=== PATIENT | female | born 1990 | race African-American/Black ===

== ENCOUNTER 2021-07-19 20:11 | Inpatient (IN) | payer MEDICAID, OTHER ==
[~2021-07-19] VITALS: Ht 177.8 cm; Wt 76.5 kg
--- NOTE | 2021-07-19 20:23 | NUR ---
ASSUMED CARE OF PATIENT. PATIENT BIB [facility] FOR SOB. PT HAS A HISTORY OF ASHTMA. PT WAS FOUND AT 70% RA BY EMS. PT WAS GIVEN TWO BREATHING TREATMENTS AND 125 MG OF SOLU-MEDROL IV. PT IS ON 16L NRB MASK AT 100%. PT IS NOT ANSWERING ALL TRIAGE QUESTIONS. DR ODOM IN ROOM. PT HAS HER SON WITH HER. CPS CALLED BY [employer]. MICHAEL WITH CPS AWARE. MOTHER REPORTS SHE HAS SOMEONE TO COME CLINIC BUSINESS MANAGER HER SON. VS STABLE. EDUCATION SUPERVISOR ON SINUS TACH NOTED.
[2021-07-19] MEDS ORDERED: SODIUM CHLORIDE 0.9% 1,000ML IVBOLUS ONE (20:30)
[2021-07-19] MEDS ORDERED: ALBUTEROL/IPRATROPIUM 2.5MG/0.5MG, 3 ML NEB ONE (20:30)
[2021-07-19] MEDS ORDERED: SODIUM CHLORIDE FLUSH 10ML SYR IVF ONE (20:30)
--- NOTE | 2021-07-19 20:32 | NUR ---
spoke with grandmother, she is on her way to get patient's son
--- NOTE | 2021-07-19 20:35 | NUR ---
MICHAEL, FROM CPS AWARE PT IS GOING WITH GRANDMOTHER.
[2021-07-19] MEDS ORDERED: ALBUTEROL/IPRATROPIUM 2.5MG/0.5MG, 3 ML ONE (21:00)
--- NOTE | 2021-07-19 21:05 | NUR ---
LAB IN ROOM
--- NOTE | 2021-07-19 21:23 | NUR ---
BREATHING TREATMENT RUNNING
--- NOTE | 2021-07-19 21:26 | NUR ---
PT'S SON WENT WITH HER MOTHER (HIS GRANDMOTHER) PER PATIENT.
[2021-07-19 21:28] LABS: BASOPHILS % (AUTO) 0 % (0-1); EOSINOPHILS % (AUTO) 7 % (1-7); LYMPHOCYTES % (AUTO) 25 % (22-44); MEAN CORPUSCULAR HGB CONC 32.6 g/dL (32.4-35.8); MEAN PLATELET VOLUME 8.3 fL (7.4-10.4); MONOCYTES % (AUTO) 3 % (2-9); NEUTROPHILS % (AUTO) 65 % (42-75); PLATELET COUNT 262 x10^3/uL (130-400); RED BLOOD COUNT 4.79 x10^6/uL (3.82-5.3); RED CELL DISTRIBUTION WIDTH 14.6 % (9.6-15.2)
--- NOTE | 2021-07-19 21:33 | NUR ---
DR ESPINAL HAS UPDATED PATIENT
[2021-07-19 21:37] LABS: ALBUMIN 2.7 g/dL (3.4-5.0); ANION GAP 4 mmol/L (5-15); CALCIUM 7.7 mg/dL (8.5-10.1); CHLORIDE 112 mmol/L (98-107); CREATININE 1.09 mg/dL (0.55-1.02)
[2021-07-19] MEDS ORDERED: POTASSIUM CHLORIDE 40 MEQ in LACTATED RINGERS 1,000 ML IV ONE (22:00)
[2021-07-19] MEDS ORDERED: OMNIPAQUE 350 MG/ML, 100ML BOTTLE ONE (22:26)
[2021-07-19] MEDS ORDERED: ALBUTEROL SULFATE 2.5 MG/3 ML NPPB ONE (22:30)
[2021-07-19] MEDS ORDERED: ALBUTEROL SULFATE 2.5 MG/3 ML ONE (22:35)
--- NOTE | 2021-07-19 23:19 | NUR ---
PT RESTING IN ROOM. PT ON 6L NC. VS STABLE. CALL LIGHT IN PLACE. WILL CONTINUE TO MONITOR.
[2021-07-19] MEDS ORDERED: ALBUTEROL (23:21)
[2021-07-19] MEDS ORDERED: CEFTRIAXONE 1,000 MG in DEXTROSE 5% 50 ML IVPB ONE (23:30)
[2021-07-19] MEDS ORDERED: AZITHROMYCIN 500 MG in SODIUM CHLORIDE 0.9% 250 ML IV ONE (23:30)
[2021-07-19] MEDS ORDERED: PLEASE ENTER HEIGHT AND WEIGHT MC SCH ×2 (23:45)
[2021-07-20] MEDS ORDERED: ALBUTEROL SULFATE 2.5 MG/3 ML NPPB ONE
[2021-07-20] MEDS ORDERED: BISACODYL 10 MG SUPP PR PRN
[2021-07-20] MEDS ORDERED: POLYETHYLENE GLYCOL 17 GM PACKET PO PRN
[2021-07-20] MEDS: KETOROLAC 30 MG/1 ML IVPush PRN ×2 (02:31→08:43)
[2021-07-20] MEDS: AZITHROMYCIN 500 MG in SODIUM CHLORIDE 0.9% 250 ML IV SCH (02:49)
[2021-07-20] MEDS: SODIUM CHLORIDE FLUSH 10ML SYR IVF SCH ×3 (02:50→22:06)
[2021-07-20] MEDS: methylPREDNISolone SOD SUCC 125 MG/2 ML IVPush ONE ×2 (02:51→03:21)
[2021-07-20] MEDS: HEPARIN 5,000 UNITS/ML, 1ML SQ SCH ×3 (02:52→17:41)
[2021-07-20] MEDS: ACETAMINOPHEN 325 MG TABLET PO PRN ×4 (03:04→18:08)
[2021-07-20 05:52] LABS: BASOPHILS % (AUTO) 0 % (0-1); EOSINOPHILS % (AUTO) 0 % (1-7); LYMPHOCYTES % (AUTO) 10 % (22-44); MEAN CORPUSCULAR HGB CONC 32.6 g/dL (32.4-35.8); MEAN PLATELET VOLUME 8.7 fL (7.4-10.4); MONOCYTES % (AUTO) 1 % (2-9); NEUTROPHILS % (AUTO) 89 % (42-75); PLATELET COUNT 260 x10^3/uL (130-400); RED BLOOD COUNT 4.46 x10^6/uL (3.82-5.3); RED CELL DISTRIBUTION WIDTH 14.7 % (9.6-15.2)
[2021-07-20] MEDS: ALBUTEROL HFA 90 MCG/SPRAY INH SCH ×4 (05:52→22:06)
[2021-07-20 06:02] LABS: ANION GAP 6 mmol/L (5-15); CALCIUM 7.8 mg/dL (8.5-10.1); CHLORIDE 112 mmol/L (98-107); CREATININE 0.82 mg/dL (0.55-1.02)
[2021-07-20] MEDS ORDERED: methylPREDNISolone SOD SUCC 125 MG/2 ML IVPush SCH (08:00)
[2021-07-20 08:19] VITALS: BP 147/97
[2021-07-20] MEDS: methylPREDNISolone SOD SUCC 125 MG/2 ML IVPush SCH ×2 (08:43→14:00)
[2021-07-20] MEDS: SENNA/DOCUSATE TABLET PO SCH (08:44)
[2021-07-20 09:30] LABS: AMPHETAMINE SCREEN, URINE Negative (Negative); BARBITURATE SCREEN, URINE Negative (Negative); BENZODIAZEPINE SCREEN, URINE Negative (Negative); CANNABINOID SCREEN, URINE Negative (Negative); COCAINE SCREEN, URINE Negative (Negative); METHADONE SCREEN, URINE Negative (Negative); OPIATE SCREEN, URINE Negative (Negative)
[2021-07-20 13:24] VITALS: BP 145/93
[2021-07-20] MEDS ORDERED: FUROSEMIDE 20 MG/2 ML IV ONE (17:30)
[2021-07-20] MEDS: CHOLECALCIFEROL 5,000u TAB PO SCH (18:08)
[2021-07-20] MEDS: ZINC SULFATE 220 MG CAPSULE PO SCH (18:08)
[2021-07-20] MEDS: ASCORBIC ACID 250 MG TAB PO SCH (18:08)
[2021-07-20 19:42] VITALS: BP 142/81
[2021-07-21] MEDS ORDERED: CEFTRIAXONE 1,000 MG in DEXTROSE 5% 50 ML IVPB SCH
[2021-07-21 01:09] VITALS: BP 124/83
[2021-07-21] MEDS: CEFTRIAXONE 2,000 MG in DEXTROSE 5% 50 ML IVPB SCH (01:35)
[2021-07-21] MEDS: HEPARIN 5,000 UNITS/ML, 1ML SQ SCH ×3 (03:16→17:40)
[2021-07-21] MEDS: AZITHROMYCIN 500 MG in SODIUM CHLORIDE 0.9% 250 ML IV SCH (03:17)
[2021-07-21] MEDS: ALBUTEROL HFA 90 MCG/SPRAY INH SCH ×4 (04:27→21:03)
[2021-07-21] MEDS: ONDANSETRON ODT 4 MG PO PRN (04:27)
[2021-07-21 05:45] LABS: BASOPHILS % (AUTO) 0 % (0-1); EOSINOPHILS % (AUTO) 0 % (1-7); LYMPHOCYTES % (AUTO) 12 % (22-44); MEAN CORPUSCULAR HGB CONC 32.2 g/dL (32.4-35.8); MEAN PLATELET VOLUME 8.9 fL (7.4-10.4); MONOCYTES % (AUTO) 6 % (2-9); NEUTROPHILS % (AUTO) 82 % (42-75); PLATELET COUNT 258 x10^3/uL (130-400); RED BLOOD COUNT 4.21 x10^6/uL (3.82-5.3); RED CELL DISTRIBUTION WIDTH 15.3 % (9.6-15.2)
[2021-07-21 05:47] LABS: HCT (SEDRATE) 35.1 % (34.6-47.8)
[2021-07-21 05:52] LABS: ALBUMIN 2.7 g/dL (3.4-5.0); CALCIUM 8.1 mg/dL (8.5-10.1); CHLORIDE 109 mmol/L (98-107)
[2021-07-21 05:55] LABS: ALANINE AMINOTRANSFERASE 21 U/L (12-78); ALKALINE PHOSPHATASE 74 U/L (45-117); BILIRUBIN,TOTAL 0.1 mg/dL (0.2-1.0); C-REACTIVE PROTEIN, QUANT 0.39 mg/dL (0.02-0.49); CREATININE 0.84 mg/dL (0.55-1.02)
[2021-07-21 05:56] LABS: ANION GAP 6 mmol/L (5-15)
[2021-07-21 06:00] LABS: D-DIMER 0.7 ug/mlFEU (0.00-0.52)
[2021-07-21 07:43] VITALS: BP 103/68
[2021-07-21] MEDS: ASCORBIC ACID 250 MG TAB PO SCH ×2 (09:27→17:40)
[2021-07-21] MEDS: ZINC SULFATE 220 MG CAPSULE PO SCH (09:27)
[2021-07-21] MEDS: DEXAMETHASONE 4 MG/ML, 1ML IVPush SCH (09:27)
[2021-07-21] MEDS: SENNA/DOCUSATE TABLET PO SCH (09:28)
[2021-07-21] MEDS: SODIUM CHLORIDE FLUSH 10ML SYR IVF SCH ×2 (09:28→21:04)
[2021-07-21] MEDS: CHOLECALCIFEROL 5,000u TAB PO SCH (09:28)
[2021-07-21 12:15] VITALS: BP 137/85
[2021-07-21 19:16] VITALS: BP 132/86
[2021-07-21] MEDS ORDERED: LIDODERM 5% PATCH TD PRN (21:00)
[2021-07-21] MEDS ORDERED: LIDODERM REMOVE PATCH NOTE XX PRN (21:00)
[2021-07-22 01:14] VITALS: BP 132/85
[2021-07-22] MEDS: CEFTRIAXONE 2,000 MG in DEXTROSE 5% 50 ML IVPB SCH (01:23)
[2021-07-22] MEDS: HEPARIN 5,000 UNITS/ML, 1ML SQ SCH ×2 (01:47→09:19)
[2021-07-22] MEDS: ALBUTEROL HFA 90 MCG/SPRAY INH SCH ×3 (05:43→16:00)
[2021-07-22 07:58] VITALS: BP 135/86
[2021-07-22] MEDS ORDERED: AZITHROMYCIN 250 MG TABLET PO SCH (09:00)
[2021-07-22] MEDS: SENNA/DOCUSATE TABLET PO SCH (09:00)
[2021-07-22] MEDS: SODIUM CHLORIDE FLUSH 10ML SYR IVF SCH (09:00)
[2021-07-22] MEDS: DEXAMETHASONE 4 MG/ML, 1ML IVPush SCH (09:18)
[2021-07-22] MEDS: ASCORBIC ACID 250 MG TAB PO SCH ×2 (09:19→17:00)
[2021-07-22] MEDS: CHOLECALCIFEROL 5,000u TAB PO SCH (09:19)
[2021-07-22] MEDS: ZINC SULFATE 220 MG CAPSULE PO SCH (09:20)
[2021-07-22] MEDS: ONDANSETRON ODT 4 MG PO PRN (09:35)
[2021-07-22] MEDS ORDERED: CHOL500045 PO (13:10)
[2021-07-22] MEDS ORDERED: AZIT250T89 PO (13:10)
[2021-07-22] MEDS ORDERED: ALBU18HF INH (13:10)
[2021-07-22] MEDS ORDERED: ASCO250T12 PO (13:10)
[2021-07-22] MEDS ORDERED: ZINC220C8 PO (13:10)
[2021-07-22] MEDS ORDERED: PRED20TA PO (13:11)
[2021-07-22 13:29] VITALS: BP 144/90
== END 2021-07-22 17:00 | disposition home or self-care (01) | DRG 177 ==
LOC: ED 21:56 → EDIP 23:40 → 3N 07-20 01:26
PROVIDERS: ADMIT Internal Medicine; ATTEND Hospitalist
DX: U07.1 COVID-19 (principal); J12.82 Pneumonia due to coronavirus disease 2019; J96.01 Acute respiratory failure with hypoxia; J45.902 Unspecified asthma with status asthmaticus; Z82.49 Family history of ischemic heart disease and other diseases of the circulatory system
CPT/HCPCS: 36415; 99291; J7613; 71045; 71275; 80048; 80053; 80307; 80320; 82040; 82728; 83605; 83615; 83735; 83880; 84100; 85025; 85379; 85384; 85651; 86140; 87040; 93005; G0378; J0456; J0696; J1100; J1644; J1885; J3480; Q0162; Q9967; U0005; G0480; J1940; J2930; J7030; J7050; J7120; U0003